=== PATIENT | male | born 1995 | race Native Hawaiian/Other Pacific Islander ===

== ENCOUNTER 2017-02-27 02:46 | Emergency (ER) | payer OTHER ==
[~2017-02-27] VITALS: Ht 182.9 cm; Wt 117.9 kg
[2017-02-27 02:48] VITALS: BP 129/67
== END 2017-02-27 04:14 | disposition home or self-care (01) ==
LOC: ER 02:46
DX: S86.092A Other specified injury of left Achilles tendon, initial encounter (principal); X58.XXXA Exposure to other specified factors, initial encounter; Y93.63 Activity, rugby; Y92.328 Other athletic field as the place of occurrence of the external cause; Y99.8 Other external cause status